=== PATIENT | female | born 1965 | race Two or more races ===

== ENCOUNTER 2019-02-16 21:01 | Emergency (ER) | payer SELFPAY ==
[2019-02-16] MEDS ORDERED: Potassium Chloride 20 MEQ in Premix Bag 1 BAG IV ONE (22:30)
[2019-02-16] MEDS ORDERED: Sodium Chloride 0.9% 1,000 ML IV SCH (22:30)
--- NOTE | 2019-02-16 22:37 | EDM.PDOC ---
ED HPI GENERAL MEDICAL PROBLEM - General Chief Complaint: General Stated Complaint: TOLD BY JESSI LOW TO COME TO ER-BLOOD PRESSURE Time Seen by Provider: 02/16/19 22:32 Source of Information: Reports: Patient History Limitations: Reports: No Limitations - History of Present Illness INITIAL COMMENTS - FREE TEXT/NARRATIVE: pt arrived per Dr Howell request because she had a bs of greater than 300. 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 She is doing better with these symptoms but her bs is high. Onset: Today, Other ( sugars were found to be over 300. ) Duration: Hour(s): Location: Reports: Generalized Associated Symptoms: Reports: No Other Symptoms - Related Data Allergies Allergy/AdvReac Type Severity Reaction Status Date / Time No Known Allergies Allergy Verified 02/16/19 21:49 Home Meds: Home Meds predniSONE [Prednisone] 40 mg PO DAILY 02/16/19 [History] Past Medical History [employer] History: Reports: - Past Surgical History Female Surgical History: Reports: Section Social & Family History - Tobacco Use Smoking Status *Q: Never Smoker - Caffeine Use Caffeine Use: Reports: None - Recreational Drug Use Recreational Drug Use: No ED ROS GENERAL - Review of Systems Review Of Systems: See Below Constitutional: Reports: Other (high bs. ) HEENT: Reports: No Symptoms Respiratory: Reports: No Symptoms Cardiovascular: Reports: No Symptoms Endocrine: Reports: No Symptoms GI/Abdominal: Reports: No Symptoms : Reports: No Symptoms Musculoskeletal: Reports: No Symptoms Skin: Reports: No Symptoms ED EXAM, GENERAL - Physical Exam Exam: See Below Free Text/Narrative:: pt arrived with a history of a high bs thi, Her k is also low. She really feels ok. Exam Limited By: Language Barrier General Appearance: Alert, Moderate Distress Ears: Normal TMs Nose: Normal Inspection Throat/Mouth: Normal Inspection Head: Atraumatic Neck: Normal Inspection Respiratory/Chest: No Respiratory Distress Cardiovascular: Regular Rate, Rhythm GI/Abdominal: Soft, Non-Tender (Female) Exam: Deferred Rectal (Female) Exam: Deferred Back Exam: Normal Inspection Extremities: Normal Inspection Course - Vital Signs Last Recorded V/S: Last Vital Signs Temp 36.8 C 02/16/19 21:53 Pulse 93 02/16/19 21:53 Resp 16 02/16/19 21:53 BP 121/81 02/16/19 21:53 Pulse Ox 93 L 02/16/19 21:53 - Orders/Labs/Meds Labs: Laboratory Tests 02/16/19 02/16/19 Range/Units 21:38 21:38 WBC 5.5 (4.5-11.0) K/uL RBC 4.66 (3.30-5.50) M/uL Hgb 12.8 (12.0-15.0) g/dL Hct 39.3 (36.0-48.0) % MCV 84 (80-98) fL MCH 28 (27-31) pg MCHC 33 (32-36) % Plt Count 196 (150-400) K/uL Neut % (Auto) 75 H (36-66) % Lymph % (Auto) 13 L (24-44) % [place] % (Auto) 11 H (2-6) % Eos % (Auto) 0 L (2-4) % Baso % (Auto) 0 (0-1) % Sodium 139 L (140-148) mmol/L Potassium 2.8 L* (3.6-5.2) mmol/L Chloride 102 (100-108) mmol/L Carbon Dioxide 27 (21-32) mmol/L Anion Gap 12.8 (5.0-14.0) mmol/L BUN 12 (7-18) mg/dL Creatinine 0.6 (0.6-1.0) mg/dL Est Cr Clr Drug Dosing 76.10 mL/min Estimated GFR (MDRD) > 60 (>60) Glucose 162 H (74-106) mg/dL Calcium 8.5 (8.5-10.1) mg/dL Total Bilirubin 0.3 (0.2-1.0) mg/dL AST 200 H (15-37) U/L ALT 457 H (12-78) U/L Alkaline Phosphatase 177 H (46-116) U/L Total Protein 6.4 (6.4-8.2) g/dL Albumin 2.6 L (3.4-5.0) g/dL Globulin 3.8 H (2.3-3.5) g/dL Albumin/Globulin Ratio 0.7 L (1.2-2.2) Meds: Medications Discontinued Medications Generic Name Dose Route Start Last Admin Trade Name Ivett PRN Reason Stop Dose Admin Sodium Chloride 1,000 mls @ 999 mls/hr 02/16/19 22:30 02/16/19 22:49 Normal Saline IV 999 mls/hr ASDIRECTED SANDRA Administration Potassium Chloride 20 meq/ 100 mls @ 50 mls/hr 02/16/19 22:30 02/16/19 22:50 Premix IV 02/17/19 00:29 50 mls/hr ONETIME ONE Administration Potassium Chloride 10 meq 02/16/19 23:36 02/16/19 23:43 Potassium Chloride PO 02/16/19 23:37 10 meq ONETIME ONE Administration - Re-Assessments/Exams Free Text/Narrative Re-Assessment/Exam: 02/16/19 23:35 pt was found to have a bs of 160 on arrival. Later this was checked and found to be 109. She had a k of 2.9 so she was given iv k. 02/19/19 01:30 Departure - Departure Time of Disposition: 23:37 Disposition: Home, Self-Care 01 Condition: Fair Clinical Impression: Hyperglycemia, Prednisone adverse reaction, Hypokalemia - Discharge Information Instructions: Hypokalemia Referrals: PCP,None [Primary Care Provider] - Forms: ED Department Discharge Care Plan Goals: push fluids, appt at clinic in next 2 days to have sugar rechecked and possibly get a acucheck machuine. kcl 10meq 1 tab daily
[2019-02-16] MEDS ORDERED: Potassium Chloride 10 MEQ Cap.ER PO ONE (23:36)
== END 2019-02-17 01:13 | disposition home or self-care (01) ==
LOC: JP.ED 21:01
DX: R73.9 Hyperglycemia, unspecified (principal); T38.0X5A Adverse effect of glucocorticoids and synthetic analogues, initial encounter; E87.6 Hypokalemia; Z79.899 Other long term (current) drug therapy
CPT/HCPCS: 36415; 80053; 82962; 85025; 96365; 96366; 99283; A9270; J3480; J7030